=== PATIENT | male | born 1935 | race Native Hawaiian/Other Pacific Islander ===

== ENCOUNTER 2020-04-26 02:05 | Emergency (ER) | payer OTHER ==
[~2020-04-26] VITALS: Ht 180.3 cm; Wt 70.3 kg
[2020-04-26 02:26] VITALS: TEMP 98.1
[2020-04-26 03:17] LABS: PLATELET COUNT 194 K/uL (142-355)
[2020-04-26 03:26] LABS: POTASSIUM 4.1 mmol/L (3.6-5.2)
[2020-04-26 04:11] VITALS: BP 112/64
== END 2020-04-26 04:19 | disposition home or self-care (01) ==
LOC: ED 02:05
PROVIDERS: Family Medicine
DX: J06.9 Acute upper respiratory infection, unspecified (principal); K59.09 Other constipation; K29.70 Gastritis, unspecified, without bleeding
CPT/HCPCS: 36415; 80053; 81000; 82150; 83690; 85027; 99283

== ENCOUNTER 2021-12-18 04:20 | Emergency (ER) | payer OTHER ==
[~2021-12-18] VITALS: Ht 180.3 cm; Wt 70.3 kg
[2021-12-18 05:16] LABS: PLATELET COUNT 211 K/uL (142-355)
[2021-12-18 05:28] LABS: POTASSIUM 3.8 mmol/L (3.6-5.2)
[2021-12-18 06:05] VITALS: BP 132/65; TEMP 98
== END 2021-12-18 06:05 | disposition home or self-care (01) ==
LOC: ED 04:20
PROVIDERS: Emergency Medicine
DX: E87.1 Hypo-osmolality and hyponatremia (principal); R51.9 Headache, unspecified; R60.0 Localized edema; S30.851A Superficial foreign body of abdominal wall, initial encounter; W45.8XXA Other foreign body or object entering through skin, initial encounter; Y92.89 Other specified places as the place of occurrence of the external cause
CPT/HCPCS: 36415; 80053; 82550; 83880; 84484; 85027; 93005; 96360; 96374; 99284; J1885